=== PATIENT | female | born 1955 ===

== ENCOUNTER 2018-06-17 08:53 | Day surgery (SDC) | payer MEDICARE, OTHER ==
[2018-06-17] MEDS ORDERED: Lactated Ringer's 500 ML IV ONE (09:49)
[2018-06-17] MEDS ORDERED: Propofol 10 mg/ml Inj (20 ML) ONE (11:48)
[2018-06-17 12:29] VITALS: TEMP 96.9
[2018-06-17 12:41] VITALS: BP 120/66; PULSE 65; RESP 17; O2SAT 100
== END 2018-06-17 12:58 | disposition home or self-care (01) ==
LOC: H.ENDO 08:53
PROVIDERS: ATTEND Internal Medicine Gastroenterology
DX: Z12.11 Encounter for screening for malignant neoplasm of colon (principal); I10 Essential (primary) hypertension; E03.9 Hypothyroidism, unspecified; K64.8 Other hemorrhoids
CPT/HCPCS: 45378; 88305; J2704; J7120